=== PATIENT | female | born 1980 | race Caucasian/White ===

== ENCOUNTER 2016-11-13 11:32 | Emergency (ER) | payer OTHER ==
[~2016-11-13] VITALS: Ht 167.6 cm; Wt 89.6 kg
[~2016-11-13 11:32] MED LIST: AMBIEN10 MG PO; AZITHROMYCIN250 MG PO; BIOTIN 5000MCG PO; DESYREL 150 MG150 MG PO; DHEA PO; DIAZEPAM5 MG PO; GABAPENTIN300 MG PO; LYRICA150 MG PO; LYRICA75 MG PO; NASACORT10.8 ML BOTH NARES; OXYCONTIN15 MG PO; OXYMORPHONE HCL20 MG PO; PREDNISONE50 MG PO; RED CLOVER PO; SERTRALINE HCL50 MG PO; SUPER B COMP1 TABLET PO; TORADOL10 MG PO; TRAZODONE HCL50 MG PO; TURMERIC500 MG PO
[2016-11-13 13:11] LABS: EOSINOPHIL (%) 0.1 % (0-5); HEMATOCRIT 41.7 % (36.0-46.0); IMMATURE GRANULOCYTE (%) 0.4 % (0.0-0.7); INSTRUMENT ABS NEUTROPHIL CT 7.6 K/uL; LYMPHOCYTE COUNT 0.9 K/uL (1.0-2.8); MCH 27.7 PG (29.0-34.0); MCHC 32.1 G/DL (30.0-36.0); MCV 86.3 FL (83-99); MEAN PLAT.VOLUME 10.1 uM^3 (9.5-12.4); MONOCYTE (%) 4.8 % (3-12); MONOCYTE COUNT 0.4 K/uL (0-0.8); NEUTROPHIL (%) 84.3 % (45-76); NEUTROPHIL COUNT 7.6 K/uL (1.8-6.4); PLATELET COUNT 237 K/uL (156-360); RBC DIS.WIDTH-CV 13.2 % (11.8-14.6); RBC DIS.WIDTH-SD 41.6 % (39-53); RED BLOOD COUNT 4.83 M/uL (3.80-5.20)
[2016-11-13 13:20] LABS: CHLORIDE 110 mEq/L (99-109); POTASSIUM 4.4 mEq/L (3.7-5.4); SODIUM 143 mEq/L (136-147)
[2016-11-13 13:22] LABS: GLUCOSE 108 mg/dL (70-99)
[2016-11-13 13:23] LABS: ANION GAP 12 MEQ/L (2-14)
[2016-11-13 13:26] LABS: GFR ESTIMATE (CALCULATED) > 59 mL/min/
[2016-11-13 13:27] LABS: UREA NITROGEN (BUN) 13 mg/dL (9-23)
[2016-11-13 15:09] LABS: ADD MIUA? YES; BILIRUBIN NEGATIVE; BLOOD MODERATE; COLOR YELLOW ((YELLOW)); GLUCOSE (STRIP) NEGATIVE; KETONES NEGATIVE; LEUKOCYTES NEGATIVE; NITRITE NEGATIVE; PROTEIN (STRIP) 30; SPECIFIC GRAVITY 1.019 (1.000-1.030); UROBILINOGEN 0.2 MG/DL (0.2-1.0)
[2016-11-13 15:21] LABS: BACTERIA NONE SEEN /HPF; EPITHELIAL CELLS 1+ /HPF; MUCUS 3+ /LPF; RED BLOOD CELLS 30-40 /HPF (0-5); WHITE BLOOD CELLS 0-5 /HPF (0-5)
[2016-11-13] MEDS ORDERED: ZOFRAN ODT4 MG PO (15:54)
[2016-11-13] MEDS ORDERED: TORADOL10 MG PO (15:54)
[2016-11-13] MEDS ORDERED: FLOMAX0.4 MG PO (15:54)
[2016-11-13 16:33] VITALS: BP 120/92
== END 2016-11-13 17:07 | disposition home or self-care (01) ==
LOC: EME 11:32
PROVIDERS: Emergency Medicine
DX: N20.0 Calculus of kidney (principal); N20.1 Calculus of ureter; R19.7 Diarrhea, unspecified; Z87.442 Personal history of urinary calculi; M32.9 Systemic lupus erythematosus, unspecified; Z72.0 Tobacco use
CPT/HCPCS: 74176; 80048; 81003; 85025; 99281; 99285; J1885; J2405; J3010; J7030

== ENCOUNTER 2016-11-26 18:17 | Emergency (ER) | payer OTHER ==
[~2016-11-26] VITALS: Ht 167.6 cm; Wt 87.0 kg
[~2016-11-26 18:17] MED LIST changes: +FLOMAX0.4 MG PO; +ZOFRAN ODT4 MG PO
[2016-11-26 19:07] LABS: ADD MIUA? YES; BILIRUBIN SMALL; BLOOD MODERATE; COLOR AMBER ((YELLOW)); GLUCOSE (STRIP) NEGATIVE; KETONES 20; LEUKOCYTES SMALL; NITRITE NEGATIVE; PROTEIN (STRIP) 30; UROBILINOGEN 0.2 MG/DL (0.2-1.0)
[2016-11-26 19:13] LABS: HEMATOCRIT 38.4 % (36.0-46.0); MCH 28.1 PG (29.0-34.0); MCHC 33.3 G/DL (30.0-36.0); MCV 84.2 FL (83-99); MEAN PLAT.VOLUME 9.9 uM^3 (9.5-12.4); PLATELET COUNT 273 K/uL (156-360); RBC DIS.WIDTH-CV 13.3 % (11.8-14.6); RBC DIS.WIDTH-SD 41.5 % (39-53); RED BLOOD COUNT 4.56 M/uL (3.80-5.20); WHITE BLOOD COUNT 8.9 K/uL (4.1-10.2)
[2016-11-26 19:21] LABS: CHLORIDE 109 mEq/L (99-109); POTASSIUM 4.1 mEq/L (3.7-5.4); SODIUM 140 mEq/L (136-147)
[2016-11-26 19:22] LABS: GLUCOSE 79 mg/dL (70-99)
[2016-11-26 19:24] LABS: ANION GAP 11 MEQ/L (2-14)
[2016-11-26 19:26] LABS: GFR ESTIMATE (CALCULATED) > 59 mL/min/
[2016-11-26 19:27] LABS: UREA NITROGEN (BUN) 16 mg/dL (9-23)
[2016-11-26 19:34] LABS: QUANTITATIVE HCG < 4.0 MIU/ML
[2016-11-26 20:02] LABS: WHITE BLOOD CELLS 0-5 /HPF (0-5)
[2016-11-26 20:03] LABS: BACTERIA 1+ /HPF; CASTS NONE SEEN /LPF; CRYSTALS NONE SEEN; EPITHELIAL CELLS 1+ /HPF; MUCUS 3+ /LPF; UCUL ADDED? NO
[2016-11-26] MEDS ORDERED: ZOFRAN ODT8 MG PO (23:48)
[2016-11-26] MEDS ORDERED: OXYCODONE HCL10 MG PO (23:48)
[2016-11-27] MEDS ORDERED: BUPROPION XL150 MG PO (00:03)
[2016-11-27 00:04] VITALS: BP 115/58
== END 2016-11-27 00:06 | disposition home or self-care (01) ==
LOC: EME 18:17
DX: N13.2 Hydronephrosis with renal and ureteral calculous obstruction (principal); M32.9 Systemic lupus erythematosus, unspecified; F17.200 Nicotine dependence, unspecified, uncomplicated
CPT/HCPCS: 76770; 80048; 81003; 84702; 85027; 99281; 99285; J1885; J2405; J7030

== ENCOUNTER 2017-04-24 12:31 | Day surgery (SDC) | payer OTHER ==
[~2017-04-24] VITALS: Ht 167.6 cm; Wt 87.1 kg
[~2017-04-24 12:31] MED LIST changes: +BUPROPION XL150 MG PO; +OXYCODONE HCL10 MG PO; +OXYCONTIN20 MG PO; +TREXIMET 85-1 TABLET PO; +WELLBUTRIN75 MG PO; +ZOFRAN ODT8 MG PO
== END 2017-04-24 14:16 | disposition home or self-care (01) ==
LOC: SDC 12:31
PROC: 0QJYXZZ Inspection of Lower Bone, External Approach (ICD-10-PCS; principal; 2017-04-24)
DX: M20.11 Hallux valgus (acquired), right foot (principal); Z53.29 Procedure and treatment not carried out because of patient's decision for other reasons

== ENCOUNTER 2017-04-28 11:41 | Day surgery (SDC) | payer OTHER ==
[~2017-04-28] VITALS: Ht 167.6 cm; Wt 85.3 kg
[2017-04-28] MEDS ORDERED: AMITRIPTYLINE H10 MG PO (12:17)
[2017-04-28 12:18] VITALS: BP 127/75
[2017-04-28 19:15] VITALS: BP 109/57
[2017-04-28 20:15] VITALS: BP 97/53
[2017-04-29 17:34] LABS: INTERNAL CONTROL VALID? YES
== END 2017-04-28 20:29 | disposition home or self-care (01) ==
LOC: SDC 11:41
PROVIDERS: Podiatrist Foot & Ankle Surgery
DX: G57.51 Tarsal tunnel syndrome, right lower limb (principal); M72.2 Plantar fascial fibromatosis; M20.11 Hallux valgus (acquired), right foot; Z88.0 Allergy status to penicillin; M79.7 Fibromyalgia; F41.9 Anxiety disorder, unspecified; F17.210 Nicotine dependence, cigarettes, uncomplicated
CPT/HCPCS: 84703; C1713; J0131; J1100; J1170; J2175; J2250; J2405; J2765; J3010; Q0175; S0020

== ENCOUNTER 2017-09-11 03:54 | Emergency (ER) | payer OTHER ==
[~2017-09-11] VITALS: Ht 167.6 cm; Wt 89.3 kg
[~2017-09-11 03:54] MED LIST changes: +AMITRIPTYLINE H10 MG PO
[2017-09-11 04:25] LABS: MCH 28.8 PG (29.0-34.0); MCHC 34.2 G/DL (30.0-36.0); MCV 84.3 FL (83-99); PLATELET COUNT 206 K/uL (156-360); RBC DIS.WIDTH-CV 13.2 % (11.8-14.6); RBC DIS.WIDTH-SD 40.8 % (39-53); RED BLOOD COUNT 4.51 M/uL (3.80-5.20); WHITE BLOOD COUNT 6.3 K/uL (4.1-10.2)
[2017-09-11 04:34] LABS: CHLORIDE 107 mEq/L (99-109); SODIUM 138 mEq/L (136-147)
[2017-09-11 04:35] LABS: GLUCOSE 87 mg/dL (70-99)
[2017-09-11 04:39] LABS: CREATININE 0.8 mg/dL (0.6-1.3); GFR ESTIMATE (CALCULATED) > 59 mL/min/
[2017-09-11 04:40] LABS: UREA NITROGEN (BUN) 13 mg/dL (9-23)
[2017-09-11 04:46] LABS: TROP-I INTERPRETATION NEGATIVE; TROPONIN-I < 0.01 ng/mL (0.0-0.30)
[2017-09-11] MEDS ORDERED: PREDNISONE10 MG PO (08:13)
[2017-09-11] MEDS ORDERED: BENADRYL25 MG PO (08:13)
[2017-09-11] MEDS ORDERED: PEPCID20 MG PO (08:13)
[2017-09-11 08:18] VITALS: BP 129/81
== END 2017-09-11 08:18 | disposition home or self-care (01) ==
LOC: EME 03:54
DX: L50.9 Urticaria, unspecified (principal); Z88.0 Allergy status to penicillin; Z88.1 Allergy status to other antibiotic agents; Z88.5 Allergy status to narcotic agent; Z91.030 Bee allergy status; Z91.041 Radiographic dye allergy status; Z91.040 Latex allergy status; Z91.018 Allergy to other foods; F17.200 Nicotine dependence, unspecified, uncomplicated
CPT/HCPCS: 71046; 80048; 84484; 85027; 93005; 99281; 99284

== ENCOUNTER → 2017-10-06 | Outpatient (CLI) | payer OTHER ==
[~2017-10-06] MED LIST changes: +BENADRYL25 MG PO; +PEPCID20 MG PO; +PREDNISONE10 MG PO
== END | disposition home or self-care (01) ==
LOC: NUC 06:58
DX: E04.1 Nontoxic single thyroid nodule (principal)
CPT/HCPCS: 78014; 78999; A9516